=== PATIENT | male | born 1955 | race Caucasian/White ===

== ENCOUNTER → 2017-08-20 | Outpatient (CLI) | payer BC ==
[~2017-08-20] MED LIST: AMLO10TA2 PO; ASPI-515 PO; CARV6.252 PO; CLOP75TA52 PO; DAPA10TA PO; HYDR-3342 PO; HYDR25TA6 PO; LISI40TA PO; METF10002 PO; POTA10TA11 PO; REGADENOSON 0.4 MG/5 ML SYRINGE ONE; ROSU20TA PO
== END | disposition home or self-care (01) ==
LOC: CFH 08:29
PROVIDERS: ATTEND Internal Medicine Cardiovascular Disease
DX: I25.89 Other forms of chronic ischemic heart disease (principal)
CPT/HCPCS: 78452; 93017; A9502; J2785

== ENCOUNTER → 2017-08-24 | Outpatient (CLI) | payer BC ==
[~2017-08-24] MED LIST changes: +ALBU8.5H8 INH; +CHOL100011 PO; +NIAC750T11 PO; -REGADENOSON 0.4 MG/5 ML SYRINGE ONE; +SITA1TAB5 PO
== END ==
LOC: STAR 08:54
PROVIDERS: ATTEND Internal Medicine Cardiovascular Disease
DX: Z02.9 Encounter for administrative examinations, unspecified (principal)

== ENCOUNTER 2017-08-27 08:14 | Day surgery (SDC) | payer BC ==
[2017-08-24 09:17] VITALS: BP 127/72
[2017-08-24 09:59] LABS: BASOPHILS # (AUTO) 0.03 x10^3/uL (0-0.1); BASOPHILS % (AUTO) 0 % (0-1); EOSINOPHILS # (AUTO) 0.23 x10^3/uL (0-0.4); EOSINOPHILS % (AUTO) 3 % (1-7); LYMPHOCYTES # (AUTO) 2.34 x10^3/uL (1-3.4); LYMPHOCYTES % (AUTO) 34 % (22-44); MD NO; MEAN CORPUSCULAR HGB CONC 33.4 g/dL (33.2-36.2); MEAN CORPUSCULAR VOLUME 92.8 fL (81-97); MEAN PLATELET VOLUME 7.9 fL (7.4-10.4); MONOCYTES % (AUTO) 9 % (2-9); NEUTROPHILS # (AUTO) 3.73 x10^3/uL (1.8-6.8); NEUTROPHILS % (AUTO) 54 % (42-75); PLATELET COUNT 300 x10^3/uL (130-400); RED BLOOD COUNT 5.15 x10^6/uL (4.38-5.82); RED CELL DISTRIBUTION WIDTH 14.2 % (9.4-14.8)
[~2017-08-27] VITALS: Ht 175.3 cm; Wt 84.0 kg
[~2017-08-27 08:14] MED LIST changes: -ALBU8.5H8 INH
[2017-08-27] MEDS ORDERED: ALBU8.5H8 INH (09:05)
[2017-08-27 09:50] LABS: ANION GAP 8 mmol/L (5-15); CALCIUM 8.8 mg/dL (8.5-10.1); CHLORIDE 107 mmol/L (98-107); CREATININE 0.69 mg/dL (0.7-1.3)
[2017-08-27] MEDS ORDERED: MIDAZOLAM 1 MG/ML, 5ML ONE (10:07)
[2017-08-27] MEDS ORDERED: FENTANYL PF 100 MCG/2ML ONE (10:07)
[2017-08-27] MEDS ORDERED: TICAGRELOR 90 MG TABLET ONE (10:08)
[2017-08-27] MEDS ORDERED: BIVALIRUDIN 250 MG ONE (10:08)
[2017-08-27] MEDS ORDERED: VERAPAMIL 2.5 MG/ML, 2ML ONE (10:08)
[2017-08-27] MEDS ORDERED: HEPARIN 1,000 UNITS/ML, 10ML ONE (10:08)
[2017-08-27] MEDS ORDERED: LIDOCAINE 2%, 20ML ONE (10:08)
[2017-08-27] MEDS ORDERED: SODIUM CHLORIDE 0.9% 1,000 ML IV SCH (11:04)
== END 2017-08-27 13:40 ==
LOC: CACL 08:14
PROVIDERS: ATTEND Internal Medicine Cardiovascular Disease
DX: I25.10 Atherosclerotic heart disease of native coronary artery without angina pectoris (principal); I10 Essential (primary) hypertension; E78.4 Other hyperlipidemia; E11.9 Type 2 diabetes mellitus without complications; Z95.5 Presence of coronary angioplasty implant and graft; Z79.899 Other long term (current) drug therapy; Z79.82 Long term (current) use of aspirin
CPT/HCPCS: 36415; 80048; 85025; 93458; 99156; 99157; C1769; C1887; C1894; J1644; J2250; J3010; J3490; Q9967; J0583

== ENCOUNTER 2018-11-08 03:19 | Observation (INO) | payer BC ==
[~2018-11-08] VITALS: Ht 175.3 cm; Wt 88.7 kg
[~2018-11-08 03:19] MED LIST changes: +ALBU8.5H8 INH; -AMLO10TA2 PO; +AMLO10TA8 PO; -ROSU20TA PO; +ROSU20TA2 PO
--- NOTE | 2018-11-08 03:36 | NUR ---
PT DEVELOPED MIDSTERNAL NONRADIATING CHEST PAIN AROUND 0100. PT HAST TAKEN 3 NITRO AND 325MG ASPIRIN.
[2018-11-08] MEDS ORDERED: SODIUM CHLORIDE FLUSH 10ML SYR IVF ONE (04:00)
[2018-11-08 04:13] LABS: BASOPHILS # (AUTO) 0.03 x10^3/uL (0-0.1); BASOPHILS % (AUTO) 1 % (0-1); EOSINOPHILS # (AUTO) 0.29 x10^3/uL (0-0.4); EOSINOPHILS % (AUTO) 4 % (1-7); LYMPHOCYTES # (AUTO) 2.12 x10^3/uL (1-3.4); LYMPHOCYTES % (AUTO) 31 % (22-44); MD NO; MEAN CORPUSCULAR HEMOGLOBIN 29.1 pg (27.5-34.5); MEAN CORPUSCULAR HGB CONC 32.9 g/dL (33.2-36.2); MEAN CORPUSCULAR VOLUME 88.2 fL (81-97); MEAN PLATELET VOLUME 7.8 fL (7.4-10.4); MONOCYTES # (AUTO) 0.69 x10^3/uL (0.2-0.8); MONOCYTES % (AUTO) 10 % (2-9); NEUTROPHILS # (AUTO) 3.63 x10^3/uL (1.8-6.8); NEUTROPHILS % (AUTO) 54 % (42-75); PLATELET COUNT 288 x10^3/uL (130-400); RED BLOOD COUNT 4.66 x10^6/uL (4.38-5.82); RED CELL DISTRIBUTION WIDTH 15.4 % (9.4-14.8)
[2018-11-08] MEDS ORDERED: ONDANSETRON 2MG/ML, 2ML ONE (04:23)
[2018-11-08] MEDS ORDERED: MORPHINE SULFATE 4 MG/ML, 1ML ONE ×2 (04:23→04:53)
[2018-11-08 04:25] LABS: ALBUMIN 3.8 g/dL (3.4-5.0); ANION GAP 7 mmol/L (5-15); CHLORIDE 107 mmol/L (98-107)
[2018-11-08 04:30] LABS: ALANINE AMINOTRANSFERASE 28 U/L (12-78); ALKALINE PHOSPHATASE 107 U/L (45-117); BILIRUBIN,TOTAL 0.7 mg/dL (0.2-1.0); CREATININE 1.09 mg/dL (0.7-1.3); INTERNATIONAL NORMALIZED RATIO 1.08 (0.93-1.1); PROTHROMBIN TIME 11.3 Seconds (9.6-11.5); TOTAL PROTEIN 6.4 g/dL (6.4-8.2); TROPONIN I < 0.015 ng/mL (0.000-0.045)
[2018-11-08] MEDS ORDERED: ONDANSETRON 2MG/ML, 2ML IVPush ONE (04:30)
[2018-11-08] MEDS ORDERED: MORPHINE SULFATE 4 MG/ML, 1ML IVPush ONE ×3 (04:30→07:00)
--- NOTE | 2018-11-08 04:33 | NUR ---
PT MEDICATED PER EMAR. VSS. UPDATED ON POC.
[2018-11-08] MEDS ORDERED: NITROGLYCERIN OINT 2%, 1GM TP ONE ×2 (04:52→05:00)
--- NOTE | 2018-11-08 05:02 | NUR ---
PT CONTINUES TO HAVE MIDSTERNAL CHEST PRESSURE RADIATING UP INTO LEFT JAW. PT MEDICATED PER EMAR WITH MORPHINE 4MG IVP AND NITROPAST APPLIED TO LEFT CHEST.
--- NOTE | 2018-11-08 05:25 | NUR ---
REPORT GIVEN TO ZEINA HERNANDEZ. PT ADMITTED TO [facility] 510-1. VSS. AT BEDSIDE.
[2018-11-08 06:01] VITALS: BP 143/87
[2018-11-08 07:30] VITALS: BP 111/63
[2018-11-08 07:30] LABS: TROPONIN I < 0.015 ng/mL (0.000-0.045)
[2018-11-08] MEDS ORDERED: hydrALAzine 20 MG/ML, 1ML IVPush PRN (08:00)
[2018-11-08] MEDS ORDERED: ONDANSETRON 2MG/ML, 2ML IVPush PRN (08:00)
[2018-11-08] MEDS ORDERED: DOCUSATE 100 MG CAPSULE PO PRN (08:00)
[2018-11-08] MEDS ORDERED: MORPHINE SULFATE 4 MG/ML, 1ML IVPush PRN (08:00)
[2018-11-08] MEDS ORDERED: NITROGLYCERIN 0.4 MG BOTTLE (25 TABS) SL PRN (08:00)
[2018-11-08] MEDS ORDERED: ACETAMINOPHEN 325 MG TABLET PO PRN (08:00)
[2018-11-08 08:46] VITALS: BP 116/69
[2018-11-08] MEDS: ASPIRIN 81 MG TABLET EC PO SCH (08:47)
[2018-11-08] MEDS: LISINOPRIL 40 MG TABLET PO SCH (08:48)
[2018-11-08] MEDS: HYDROCHLOROTHIAZIDE 25 MG TABLET PO SCH (08:48)
[2018-11-08] MEDS: AMLODIPINE 10 MG TAB PO SCH (08:48)
[2018-11-08] MEDS: CLOPIDOGREL 75 MG TABLET PO SCH (08:48)
[2018-11-08] MEDS: POTASSIUM CHLORIDE 20 MEQ TAB.ER.PRT PO SCH (08:48)
[2018-11-08 09:59] LABS: TROPONIN I < 0.015 ng/mL (0.000-0.045)
[2018-11-08] MEDS: CARVEDILOL 6.25 MG TABLET PO SCH ×2 (11:35→20:10)
[2018-11-08] MEDS: INSULIN LISPRO 100 UNITS/ML, PEN SQ-INSULIN SCH ×3 (11:36→20:24)
[2018-11-08 11:37] VITALS: BP 129/79
[2018-11-08] MEDS ORDERED: MAALOX/HYOSCYAMINE/LIDOCAINE 45 ML BTL PO ONE (12:00)
[2018-11-08 12:25] VITALS: BP 125/76
[2018-11-08] MEDS ORDERED: KETOROLAC 30 MG/1 ML ONE (13:32)
[2018-11-08] MEDS: KETOROLAC 30 MG/1 ML IVPush ONE ×2 (13:34→13:38)
[2018-11-08 14:15] LABS: TROPONIN I < 0.015 ng/mL (0.000-0.045)
[2018-11-08 16:37] LABS: TROPONIN I < 0.015 ng/mL (0.000-0.045)
[2018-11-08 19:00] VITALS: BP 103/62
[2018-11-08] MEDS ORDERED: NIACIN 500 MG TABLET.ER PO SCH (21:00)
[2018-11-08] MEDS ORDERED: ATORVASTATIN 40 MG TABLET PO SCH (21:00)
[2018-11-09] MEDS ORDERED: TEMAZEPAM 15 MG CAPSULE PO PRN (01:00)
[2018-11-09] MEDS ORDERED: MAALOX/HYOSCYAMINE/LIDOCAINE 45 ML BTL PO ONE (01:00)
[2018-11-09 01:10] VITALS: BP 135/72
[2018-11-09 05:30] LABS: BASOPHILS # (AUTO) 0.04 x10^3/uL (0-0.1); BASOPHILS % (AUTO) 0 % (0-1); EOSINOPHILS # (AUTO) 0.34 x10^3/uL (0-0.4); EOSINOPHILS % (AUTO) 3 % (1-7); LYMPHOCYTES # (AUTO) 2.56 x10^3/uL (1-3.4); LYMPHOCYTES % (AUTO) 20 % (22-44); MD NO; MEAN CORPUSCULAR HGB CONC 33.4 g/dL (33.2-36.2); MEAN CORPUSCULAR VOLUME 86.9 fL (81-97); MEAN PLATELET VOLUME 7.9 fL (7.4-10.4); MONOCYTES # (AUTO) 0.99 x10^3/uL (0.2-0.8); MONOCYTES % (AUTO) 8 % (2-9); NEUTROPHILS # (AUTO) 9.02 x10^3/uL (1.8-6.8); NEUTROPHILS % (AUTO) 70 % (42-75); PLATELET COUNT 298 x10^3/uL (130-400); RED CELL DISTRIBUTION WIDTH 15.1 % (9.4-14.8)
[2018-11-09 05:43] LABS: CHLORIDE 108 mmol/L (98-107)
[2018-11-09 06:12] LABS: ANION GAP 12 mmol/L (5-15); CALCIUM 8.5 mg/dL (8.5-10.1); CHOL/HDL RATIO 2.1; CHOLESTEROL, TOTAL 96 mg/dL (140-239); CREATININE 0.83 mg/dL (0.7-1.3); HDL CHOL % 48 % (26-37); HDL CHOLESTEROL (DIRECT) 46 mg/dL (40-60); LDL CHOLESTEROL,CALCULATED 38 mg/dL (54-169); LDL/HDL RATIO 0.8 (0.5-3.0); TRIGLYCERIDES 61 mg/dL (50-200); VLDL CHOLESTEROL 12 mg/dL (0-25)
[2018-11-09 08:04] VITALS: BP 127/69
[2018-11-09] MEDS: CARVEDILOL 6.25 MG TABLET PO SCH ×2 (08:09→09:58)
[2018-11-09] MEDS: POTASSIUM CHLORIDE 20 MEQ TAB.ER.PRT PO SCH (08:26)
[2018-11-09] MEDS: CLOPIDOGREL 75 MG TABLET PO SCH (08:26)
[2018-11-09] MEDS: HYDROCHLOROTHIAZIDE 25 MG TABLET PO SCH (08:27)
[2018-11-09] MEDS: AMLODIPINE 10 MG TAB PO SCH (08:27)
[2018-11-09] MEDS: ASPIRIN 81 MG TABLET EC PO SCH (08:27)
[2018-11-09] MEDS: LISINOPRIL 40 MG TABLET PO SCH (08:27)
[2018-11-09] MEDS ORDERED: FAMO20TA7 PO (09:38)
[2018-11-09] MEDS ORDERED: MAG355OR14 PO (09:38)
== END 2018-11-09 10:17 | disposition home or self-care (01) ==
LOC: ED 05:14 → INTOOBSV 05:15 → EDIP 05:15 → 5SO 06:20 → DCLOUNGE 11-09 10:07
PROVIDERS: ADMIT Family Medicine; ATTEND Family Medicine
DX: R07.89 Other chest pain (principal); I82.409 Acute embolism and thrombosis of unspecified deep veins of unspecified lower extremity; I25.10 Atherosclerotic heart disease of native coronary artery without angina pectoris; E11.9 Type 2 diabetes mellitus without complications; I10 Essential (primary) hypertension; E78.5 Hyperlipidemia, unspecified; I25.2 Old myocardial infarction; Z87.891 Personal history of nicotine dependence; Z95.5 Presence of coronary angioplasty implant and graft; Z79.84 Long term (current) use of oral hypoglycemic drugs; Z79.82 Long term (current) use of aspirin; Z79.01 Long term (current) use of anticoagulants; Z79.899 Other long term (current) drug therapy
CPT/HCPCS: 36415; 71045; 80048; 80053; 80061; 82962; 83735; 83880; 84100; 84484; 85025; 85610; 85730; 93005; 93306; 96372; 96374; 96375; 96376; 99284; G0378; J1815; J1885; J2405

== ENCOUNTER → 2018-12-06 | Outpatient (CLI) | payer BC ==
[~2018-12-06] MED LIST changes: +FAMO20TA7 PO; +MAG355OR14 PO; +NITR0.4T28 SL; +PANT40TA3 PO
== END | disposition home or self-care (01) ==
LOC: STAR 10:18
PROVIDERS: ATTEND Surgery
DX: Z01.818 Encounter for other preprocedural examination (principal); K80.20 Calculus of gallbladder without cholecystitis without obstruction; Z90.49 Acquired absence of other specified parts of digestive tract; I21.9 Acute myocardial infarction, unspecified
CPT/HCPCS: 93005

== ENCOUNTER 2018-12-13 11:03 | Day surgery (SDC) | payer BC ==
[~2018-12-13] VITALS: Ht 175.3 cm; Wt 88.8 kg
[2018-12-13] MEDS ORDERED: LACTATED RINGERS 1,000 ML IV SCH (11:33)
[2018-12-13 11:34] VITALS: BP 119/81
[2018-12-13] MEDS ORDERED: LIDOCAINE-MPF 1%, 2ML INFIL ONE (12:00)
[2018-12-13] MEDS ORDERED: EPINEPHRINE 1 MG/ML, 1ML ONE (13:45)
[2018-12-13] MEDS ORDERED: BUPIVACAINE/PF 0.5% ONE (13:45)
[2018-12-13] MEDS ORDERED: FENTANYL PF 250 MCG/5ML ONE (14:47)
[2018-12-13] MEDS ORDERED: MIDAZOLAM 1 MG/ML, 2ML ONE (14:47)
[2018-12-13] MEDS ORDERED: PROPOFOL 10 MG/ML, 20ML ONE ×2 (15:00)
[2018-12-13] MEDS ORDERED: DEXAMETHASONE 4 MG/ML, 1ML ONE (15:00)
[2018-12-13] MEDS ORDERED: SUCCINYLCHOLINE 20 MG/ML, 10ML ONE (15:00)
[2018-12-13] MEDS ORDERED: ONDANSETRON 2MG/ML, 2ML ONE (15:00)
[2018-12-13] MEDS ORDERED: CEFAZOLIN 1,000 MG ONE (15:00)
[2018-12-13] MEDS ORDERED: hydrALAzine 20 MG/ML, 1ML IV PRN (15:30)
[2018-12-13] MEDS ORDERED: KETOROLAC 30 MG/1 ML IV PRN (15:30)
[2018-12-13] MEDS ORDERED: HYDROmorphone 1 MG/ML, 1ML INJ IV PRN (15:30)
[2018-12-13] MEDS ORDERED: ALBUTEROL SULFATE 2.5 MG/3 ML NPPB PRN (15:30)
[2018-12-13] MEDS ORDERED: LABETALOL 5MG/ML, 20ML IV PRN (15:30)
[2018-12-13] MEDS ORDERED: MEPERIDINE/PF 25MG/0.5ML IVPush PRN (15:30)
[2018-12-13] MEDS ORDERED: METOCLOPRAMIDE 5 MG/ML, 2ML IV PRN (15:30)
[2018-12-13] MEDS ORDERED: ONDANSETRON 2MG/ML, 2ML IVPush PRN (15:30)
[2018-12-13] MEDS ORDERED: OXYcodone 5 MG/5 ML ORAL.SOL UDC PO PRN (15:30)
[2018-12-13] MEDS ORDERED: PROMETHAZINE 25 MG/ML, 1ML IV PRN (15:30)
[2018-12-13] MEDS ORDERED: THROMBIN 5,000 UNIT VIAL TP ONE (15:44)
[2018-12-13] MEDS ORDERED: OXYcodone 5 MG/5 ML ORAL.SOL UDC ONE (16:14)
[2018-12-13] MEDS ORDERED: hydrALAzine 20 MG/ML, 1ML ONE (16:14)
[2018-12-13] MEDS ORDERED: FENTANYL PF 100 MCG/2ML ONE (16:14)
[2018-12-13] MEDS: FENTANYL PF 100 MCG/2ML IV PRN ×2 (16:21→16:38)
[2018-12-13] MEDS ORDERED: KETOROLAC 30 MG/1 ML ONE (16:40)
== END 2018-12-13 18:50 | disposition home or self-care (01) ==
LOC: OUT 11:03
PROVIDERS: ATTEND Surgery
DX: K80.10 Calculus of gallbladder with chronic cholecystitis without obstruction (principal); K82.8 Other specified diseases of gallbladder; I10 Essential (primary) hypertension; I25.10 Atherosclerotic heart disease of native coronary artery without angina pectoris; I25.2 Old myocardial infarction; Z72.89 Other problems related to lifestyle; Z79.82 Long term (current) use of aspirin; Z79.84 Long term (current) use of oral hypoglycemic drugs; Z79.899 Other long term (current) drug therapy; Z88.2 Allergy status to sulfonamides; Z95.5 Presence of coronary angioplasty implant and graft; Z98.890 Other specified postprocedural states
CPT/HCPCS: 47562; 82962; 88304; J0171; J0330; J0360; J0690; J1100; J1885; J2250; J2405; J2704; J3010; J7120

== ENCOUNTER 2020-08-16 06:51 | Outpatient (CLI) | payer BC ==
[~2020-08-16 06:51] MED LIST changes: +AMLO-211 PO; -AMLO10TA8 PO; -ASPI-515 PO; +ASPI-963 PO; -LISI40TA PO; +LISI40TA9 PO
[2020-08-16] MEDS ORDERED: REGADENOSON 0.4 MG/5 ML SYRINGE ONE (11:36)
[2020-08-16] MEDS ORDERED: AMINOPHYLLINE 25 MG/ML, 10ML ONE (12:11)
== END 2020-08-16 23:59 | disposition home or self-care (01) ==
LOC: CFH 06:51
PROVIDERS: ATTEND Internal Medicine Cardiovascular Disease
DX: I08.2 Rheumatic disorders of both aortic and tricuspid valves (principal); I21.09 ST elevation (STEMI) myocardial infarction involving other coronary artery of anterior wall; I25.10 Atherosclerotic heart disease of native coronary artery without angina pectoris; I21.19 ST elevation (STEMI) myocardial infarction involving other coronary artery of inferior wall; R11.2 Nausea with vomiting, unspecified; I11.9 Hypertensive heart disease without heart failure
CPT/HCPCS: 78452; 93017; 93306; A9502; J0280; J2785